=== PATIENT | male | born 1995 | race Two or more races ===

== ENCOUNTER 2018-09-26 12:00 | Emergency (ER) | payer SELFPAY ==
[2018-09-26 12:27] VITALS: BP 131/81
[2018-09-26] MEDS ORDERED: methylPREDNISolone Sodium Succinate 125 MG/2 ML SDV IM ONE (12:28)
--- NOTE | 2018-09-26 12:31 | EDM.PDOC ---
ED HPI GENERAL MEDICAL PROBLEM - General Chief Complaint: ENT Problem Stated Complaint: SORE THROAT Time Seen by Provider: 09/26/18 12:10 Source of Information: Reports: Patient History Limitations: Reports: No Limitations - History of Present Illness INITIAL COMMENTS - FREE TEXT/NARRATIVE: HISTORY AND PHYSICAL: History of present illness: Patient is a 23-year-old male who presents to the emergency room with complaints of throat pain. He states his initial concern and reason for being here today is due to pain with swallowing and enlarged tonsils. This morning he did have one episode of hematuria. He reports he had urgency to void and at the end of his stream he did note some blood. He denies any fever, chills, chest pain, shortness of breath or cough. Denies any abdominal pain, penile drainage/ discharge, nausea, vomiting, diarrhea or constipation. He had no pain associated with voiding. No concerns of STDs. Review of systems: As per history of present illness and below otherwise all systems reviewed and negative. Past medical history: As per history of present illness and as reviewed below otherwise noncontributory. Surgical history: As per history of present illness and as reviewed below otherwise noncontributory. Social history: See social history for further information Family history: As per history of present illness and as reviewed below otherwise noncontributory. Physical exam: General: Well-developed and well-nourished 23-year-old male. Alert and oriented. Nontoxic appearing and in no acute distress. HEENT: Atraumatic, normocephalic, pupils equal and reactive bilaterally, negative for conjunctival pallor or scleral icterus, mucous membranes moist, TMs normal bilaterally, enlarged tonsils bilaterally (no pillar shifting and not touching), neck supple, nontender, trachea midline. No drooling or trismus noted. No meningeal signs. No hot potato voice noted. Lungs: Clear to auscultation, breath sounds equal bilaterally, chest nontender. Heart: S1S2, regular rate and rhythm without overt murmur Abdomen: Soft, nondistended, nontender. Negative for masses or hepatosplenomegaly. Negative for costovertebral tenderness. Pelvis: Stable nontender. Genitourinary: Deferred. Rectal: Deferred. Skin: Intact, warm, dry. No lesions or rashes noted. Extremities: Atraumatic, negative for cords or calf pain. Neurovascular unremarkable. Neuro: Awake, alert, oriented. Cranial nerves II through XII unremarkable. Cerebellum unremarkable. Motor and sensory unremarkable throughout. Exam nonfocal. Notes: Strep screening is positive. The urine does have wbc's and blood. I did request that we do a CT of the abdomen and pelvis to rule out stone. He states he would rather watch this at home as he does not have any pain with urination. We reviewed signs and symptoms that would prompt him to return to the emergency room. Regardless it did want him to follow-up with the urologist next week. He voices understanding and is agreeable to plan of care. Denies any further questions or concerns at this time. Diagnostics: Strep screening, [employer]: Solu-Medrol Prescription: Pen-VK BID 10 days Medrol Dosepak Phenergan with codeine Impression: Strep throat Hematuria Plan: 1. Take the medication as directed. 2. Tylenol and/or ibuprofen as needed for pain and fever management. Use the Phenergan with codeine for moderate to severe pain. This medication may cause drowsiness a do not take it will driving her needing to be functioning outside of the house. 3. Please follow-up with the gear repairer on Saturday. If he continued to have blood in her urine, please follow-up with the urologist, Dr. Hawkins. Return to the ED as needed and as discussed. Definitive disposition and diagnosis as appropriate pending reevaluation and review of above. Throat Pain Score (Numeric/FACES): 7 - Related Data Allergies Allergy/AdvReac Type Severity Reaction Status Date / Time No Known Allergies Allergy Verified 09/26/18 12:27 Home Meds: Home Meds . [No Known Home Meds] 01/02/15 [History] ED ROS ENT - Review of Systems Review Of Systems: ROS reveals no pertinent complaints other than HPI. ED EXAM, ENT - Physical Exam Exam: See Below (See dictation) Course - Vital Signs Last Recorded V/S: Last Vital Signs Temp 97.1 F 09/26/18 12:24 Pulse 92 09/26/18 12:24 Resp 18 09/26/18 12:24 BP 131/81 09/26/18 12:24 Pulse Ox 98 09/26/18 12:24 - Orders/Labs/Meds Orders: Active Orders 24 hr Category Date Time Status Abdomen Pelvis wo Cont [CT] Stat Exams 09/26/18 13:22 Ordered Labs: Laboratory Tests 09/26/18 Range/Units 12:32 Urine Color YELLOW Urine Appearance CLEAR Urine pH 6.0 (5.0-8.0) Ur Specific [place] >= 1.030 (1.001-1.035) Urine Protein NEGATIVE (NEGATIVE) mg/dL Urine Glucose (UA) NEGATIVE (NEGATIVE) mg/dL Urine Ketones 15 H (NEGATIVE) mg/dL Urine Occult Blood LARGE H (NEGATIVE) Urine Nitrite NEGATIVE (NEGATIVE) Urine Bilirubin NEGATIVE (NEGATIVE) Urine Urobilinogen 0.2 (<2.0) EU/dL Ur Leukocyte Esterase NEGATIVE (NEGATIVE) Urine RBC 18-20 (0-2/HPF) Urine WBC 2-3 (0-5/HPF) Ur Epithelial Cells RARE (NONE-FEW) Urine Bacteria RARE (NEGATIVE) Meds: Medications Discontinued Medications Generic Name Dose Route Start Last Admin Trade Name Freq PRN Reason Stop Dose Admin Methylprednisolone Sodium Succinate 125 mg 09/26/18 12:28 09/26/18 12:48 Solu-Medrol IM 09/26/18 12:29 125 mg ONETIME ONE Administration Departure - Departure Time of Disposition: 13:29 Disposition: Home, Self-Care 01 Clinical Impression: Strep throat Hematuria Qualifiers: Hematuria type: unspecified type Qualified Code(s): R31.9 - Hematuria, unspecified - Discharge Information Instructions: Strep Throat, [id number] Referrals: PCP,None [Primary Care Provider] - Forms: ED Department Discharge Additional Instructions: The following information is given to patients seen in the emergency department who are being discharged to home. This information is to outline your options for follow-up care. We provide all patients seen in our emergency department with a follow-up referral. The need for follow-up, as well as the timing and circumstances, are variable depending upon the specifics of your emergency department visit. If you don't have a primary care physician on staff, we will provide you with a referral. We always advise you to contact your personal physician following an emergency department visit to inform them of the circumstance of the visit and for follow-up with them and/or the need for any referrals to a consulting specialist. The emergency department will also refer you to a specialist when appropriate. This referral assures that you have the opportunity for follow-up care with a specialist. All of these measure are taken in an effort to provide you with optimal care, which includes your follow-up. Under all circumstances we always encourage you to contact your private physician who remains a resource for coordinating your care. When calling for follow-up care, please make the office aware that this follow-up is from your recent emergency room visit. If for any reason you are refused follow-up, please contact the [facility] Emergency Department at and asked to speak to the emergency department charge nurse. [facility] Primary Care [address] [place] [id number] [facility] Specialty Care - ENT [address] [place] [id number] [facility] Specialty Care - Neurology Professional Building [address] [place] [address], [address] [place] [address] 1. Take the medication as directed. 2. Tylenol and/or ibuprofen as needed for pain and fever management. Use the Phenergan with codeine for moderate to severe pain. This medication may cause drowsiness a do not take it will driving her needing to be functioning outside of the house. 3. Please follow-up with the gear repairer on Saturday. If he continued to have blood in her urine, please follow-up with the urologist, Dr. Hawkins. Return to the ED as needed and as discussed. - My Orders Last 24 Hours: My Active Orders 09/26/18 13:22 Abdomen Pelvis wo Cont [CT] Stat - Assessment/Plan Last 24 Hours: My Active Orders 09/26/18 13:22 Abdomen Pelvis wo Cont [CT] Stat
== END 2018-09-26 13:49 | disposition home or self-care (01) ==
LOC: MW.ED 12:00
DX: J02.0 Streptococcal pharyngitis (principal); R31.9 Hematuria, unspecified
CPT/HCPCS: 81001; 87880; 96372; 99283; J2930